=== PATIENT | male | born 2000 | race Caucasian/White ===

== ENCOUNTER 2019-05-28 09:38 | Emergency (ER) | payer BC ==
--- NOTE | 2019-05-28 11:09 | UC ---
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 No meds taken for pain. - History of Current Complaint Chief Complaint: UCBackPain Stated Complaint: BACK PAIN/BI LEG NUMBNESS Time Seen by Provider: 05/28/19 11:07 Hx Obtained From: Patient Onset/Duration: Gradual Onset, Lasting Days - 3 Timing: Constant Severity Initially: Mild Severity Currently: Moderate Pain Intensity: 5 Back Pain: Is Discrete @ - mid left back Character: Aching, Stiffness Aggravating Factor(s): Lifting, Bending, Walking Alleviating Factor(s): Rest Associated Signs And Symptoms: Positive: Numbness - has ill defined foot tingling bilateral. Negative: Bladder Incontinence, Bowel Incontinence - Risk Factors AAA Risk Factors: Negative TAD Risk Factors: Negative Cauda Equina Risk Factors: Negative Epidural Abscess Risk Factors: Negative - Allergies/Home Medications Allergies/Adverse Reactions: Allergies Allergy/AdvReac Type Severity Reaction Status Date / Time No Known Allergies Allergy Verified 05/28/19 10:36 Home Medications: Home Medications Levothyroxine TAB* [Synthroid TAB*] 62.5 mcg PO FR 05/28/19 [History Confirmed 05/28/19] Levothyroxine TAB* [Synthroid TAB*] 125 mcg PO SUMOTUWETHSA 05/28/19 [History Confirmed 05/28/19] PMH/Surg Hx/FS Hx/Imm Hx Endocrine History: Hypothyroidism - Surgical History Surgical History: Yes Surgery Procedure, Year, and Place: Left Ankle ORIF x 2, 2014; Left Shoulder Arthroscopy, 2018 - Family History Known Family History: Positive: Other - father has Mary Beth's thyroiditis. - Social History Occupation: Student Lives: Dormitory/Roommates Alcohol Use: Occasionally Substance Use Type: None Smoking Status (MU): Never Smoked Tobacco Review of Systems All Other Systems Reviewed And Are Negative: Yes Constitutional: Positive: Negative Skin: Positive: Negative Genitourinary: Positive: Negative Motor: Positive: Decreased ROM Neurovascular: Positive: Negative Musculoskeletal: Positive: Myalgia Is Patient Immunocompromised?: No Physical Exam Triage Information Reviewed: Yes Appearance: Well-Appearing, Well-Nourished, Pain Distress - mild Vital Signs: Initial Vital Signs Temp 98.2 F 05/28/19 10:34 Pulse 60 05/28/19 10:34 Resp 16 05/28/19 10:34 BP 111/68 05/28/19 10:34 Pulse Ox 100 05/28/19 10:34 Neck: Positive: Supple, Nontender, No Lymphadenopathy Respiratory: Positive: Lungs clear, Normal breath sounds Cardiovascular: Positive: RRR, No Murmur Abdomen Description: Positive: Nontender, No Organomegaly, Soft Musculoskeletal Exam: Other - No spinal TTP. Musculoskeletal: Positive: Strength Intact, ROM Limited @ - lumbar spine, pain with forward flexion in left paraspinals T10-L1 area. Neurological: Positive: Alert, Muscle Tone Normal, Other: - normal heel and toe walking Skin Exam: Normal Back Pain Course/Dx - Course Course Of Treatment: ibuprofen for pain control, muscle relaxant at hs, advised not to combine with alcohol - Differential Dx/Diagnosis Differential Diagnosis/HQI/PQRI: Herniated Disc, Strain, Sprain Provider Diagnosis: Upper back strain Discharge ED - Sign-Out/Discharge Documenting (check all that apply): Patient Departure All imaging exams completed and their final reports reviewed: No Studies - Discharge Plan Condition: Good Disposition: HOME Prescriptions: Cyclobenzaprine TAB* [Flexeril 10 MG TAB*] 10 mg PO DAILY PRN #10 tab PRN Reason: Spasms - Back Patient Education Materials: Thoracic Back Strain (ED), Core Strengthening Exercises (GEN) Referrals: No Primary Care Phys,NOPCP [Primary Care Provider] - Additional Instructions: For pain control: use ibuprofen 600 to 800mg up to 3x per day. A muscle relaxant has been prescribed for nighttime use. DO NOT combine with alcohol or use of other substances. If pain not improving a week, please follow up here or on your campus. - Billing Disposition and Condition Condition: GOOD Disposition: Home
[2019-05-28] MEDS ORDERED: Ibuprofen TAB* 400 MG PO ONE (11:24)
== END 2019-05-28 11:39 | disposition home or self-care (01) ==
LOC: UCCORT 09:38
DX: S29.012A Strain of muscle and tendon of back wall of thorax, initial encounter (principal); X58.XXXA Exposure to other specified factors, initial encounter; Y92.9 Unspecified place or not applicable; E03.9 Hypothyroidism, unspecified; Z79.899 Other long term (current) drug therapy
CPT/HCPCS: 99202; A9270-GY; G0463